=== PATIENT | male | born 1970 | race Caucasian/White ===

== ENCOUNTER 2023-07-13 08:00 | Outpatient (RCR) | payer BC, SELFPAY | END 2023-11-10 23:59 | disposition home or self-care (01) | PROVIDERS: PCP Physician Assistant Medical; Visit Provider Orthopaedic Surgery | DX: S42.034A Nondisplaced fracture of lateral end of right clavicle, initial encounter for closed fracture (principal); Z48.89 Encounter for other specified surgical aftercare; Z51.89 Encounter for other specified aftercare | CPT/HCPCS: 97110; 97162 ==

== ENCOUNTER 2024-04-16 07:30 | Outpatient (RCR) | payer BC, SELFPAY | END 2024-08-14 23:59 | disposition home or self-care (01) | PROVIDERS: PCP Emergency Medicine; Visit Provider Emergency Medicine | DX: M25.562 Pain in left knee (principal); Z51.89 Encounter for other specified aftercare | CPT/HCPCS: 97110; 97162 ==

== ENCOUNTER 2024-10-18 15:49 | Outpatient (CLI) | payer BC, SELFPAY | END 2024-10-18 15:50 | disposition home or self-care (01) | LOC: LKVREF 15:50 | DX: R21 Rash and other nonspecific skin eruption (principal) | CPT/HCPCS: 87169 ==

== ENCOUNTER 2024-11-18 15:53 | Outpatient (CLI) | payer BC, SELFPAY | END 2024-11-18 15:54 | disposition home or self-care (01) | PROVIDERS: Visit Provider Family Medicine | DX: I10 Essential (primary) hypertension (principal); Z12.5 Encounter for screening for malignant neoplasm of prostate; Z13.6 Encounter for screening for cardiovascular disorders | CPT/HCPCS: 80048; 80061; G0103 ==